=== PATIENT | female | born 1980 | race American Indian/Alaskan Native ===

== ENCOUNTER 2018-05-23 14:38 | Emergency (ER) | payer OTHER ==
[2018-05-23 14:41] VITALS: BMI 23.6
[2018-05-23 14:42] VITALS: BP 141/88; PULSE 91; RESP 16; TEMP 98.6; O2SAT 98
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
== END 2018-05-23 16:33 | disposition home or self-care (01) ==
LOC: H.ER 14:38
DX: S39.012A Strain of muscle, fascia and tendon of lower back, initial encounter (principal); Z90.710 Acquired absence of both cervix and uterus; Z98.84 Bariatric surgery status; V79.49XA Driver of bus injured in collision with other motor vehicles in traffic accident, initial encounter